=== PATIENT | female | born 1995 | race Two or more races ===

== ENCOUNTER 2018-07-26 12:06 | Emergency (ER) | payer MEDICAID, OTHER ==
[~2018-07-26] VITALS: Ht 165.1 cm; Wt 69.0 kg
[2018-07-26] MEDS ORDERED: ISON300 PO (12:29)
[2018-07-26] MEDS ORDERED: VITAD50000 PO (12:29)
[2018-07-26] MEDS ORDERED: PYRI100T2 PO (12:29)
[2018-07-26] MEDS: ALBUTEROL SULFATE HFA 90 MCG/PUFF 8 GM INHALER IH ONE (15:01)
[2018-07-26] MEDS: ALBUTEROL SULFATE 2.5 MG/0.5 ML NEB SOLUTION NEB ONE (15:01)
[2018-07-26] MEDS: IPRATROPIUM BROMIDE 0.5 MG/2.5 ML NEB SOLUTION NEB ONE (15:01)
[2018-07-26] MEDS: LORazepam 1 MG TABLET PO ONE (15:15)
[2018-07-26 17:10] VITALS: BP 149/95
== END 2018-07-26 17:31 | disposition home or self-care (01) ==
LOC: EMS 12:06
DX: J45.909 Unspecified asthma, uncomplicated (principal); F41.9 Anxiety disorder, unspecified; Z79.899 Other long term (current) drug therapy
CPT/HCPCS: 94640; J3535

== ENCOUNTER 2018-07-28 06:22 | Emergency (ER) | payer OTHER ==
[~2018-07-28] VITALS: Ht 160 cm; Wt 69.0 kg
[~2018-07-28 06:22] MED LIST: ISON300 PO; PYRI100T2 PO; VITAD50000 PO
[2018-07-28 06:35] VITALS: BP 160/98
[2018-07-28] MEDS ORDERED: HYDROCODONE/ACETAMINOPHEN 5-325 MG TABLET PO ONE (06:45)
== END 2018-07-28 07:11 | disposition home or self-care (01) ==
LOC: EMS 06:22
DX: H10.212 Acute toxic conjunctivitis, left eye (principal)

== ENCOUNTER 2018-07-28 14:25 | Emergency (ER) | payer OTHER ==
[~2018-07-28] VITALS: Ht 167.6 cm; Wt 70.5 kg
[2018-07-28] MEDS ORDERED: HYDROCODONE/ACETAMINOPHEN 5-325 MG TABLET PO ONE (14:45)
[2018-07-28] MEDS ORDERED: PROPARACAINE HCL 0.5% 15 ML OPHTHALMIC SOLUTION OS ONE (14:45)
[2018-07-28 15:50] VITALS: BP 128/82
== END 2018-07-28 17:07 | disposition home or self-care (01) ==
LOC: EMS 14:26
DX: H10.212 Acute toxic conjunctivitis, left eye (principal)